=== PATIENT | female | born 1965 | race African-American/Black ===

== ENCOUNTER 2017-01-11 15:47 | Emergency (ER) | payer MEDICARE, MEDICAID ==
--- NOTE | 2017-01-11 16:31 | EDM.PDOC ---
ED HISTORY OF PRESENT ILLNESS - General Chief Complaint: Chest Pain Stated Complaint: [facility] Time Seen by Provider: 01/11/17 16:31 Source of Information: Reports: Patient - History of Present Illness INITIAL COMMENTS - FREE TEXT/NARRATIVE: Patient was brought in by ambulance for multiple complaints. She describes a pleuritic right sided chest pain for about 3 weeks. Now having some PAREDES, dizziness and nausea as well. The dizziness is what brought her in today. She has a history of anxiety, takes Pristiq and BID clonazepam for this. Also reports HTN, insomnia. She smokes marijuana regularly, last time was 1 week ago. Denies other drug or alcohol use. - Related Data Allergies/ADRs: Allergies Allergy/AdvReac Type Severity Reaction Status Date / Time cyclobenzaprine HCl Allergy Airway Verified 01/11/17 15:54 [From Flexeril] Tightness morphine Allergy Airway Verified 01/11/17 15:54 Tightness Home Meds: Home Meds traZODone 100 mg PO BEDTIME 09/06/14 [History] Desvenlafaxine [Pristiq] 50 mg PO DAILY 10/25/15 [History] Prazosin [Minpress] 1 mg PO QPM 10/25/15 [History] Topiramate [Topamax] 100 mg PO BID 10/25/15 [History] ClonazePAM [KlonoPIN] 1 mg PO BID 11/16/15 [History] hydrOXYzine Pamoate [Hydroxyzine Pamoate] 50 mg PO DAILY PRN 11/16/15 [History] Albuterol [Proventil HFA] 2 puff INH QID PRN #1 inhaler 09/13/16 [Rx] metFORMIN HCl [Metformin HCl] 500 mg PO BID 01/11/17 [History] Past Medical History Cardiovascular History: Reports: Hypertension, SOB on exertion Respiratory History: Reports: SOB, Other (see below) Other Respiratory History: right lung nodule 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: Psychiatric History: Reports: Addiction, Anxiety, Depression Endocrine/Metabolic History: Reports: Diabetes, type II - Infectious Disease History Infectious Disease History: Reports: Chicken pox - Past Surgical History GI Surgical History: Reports: Appendectomy Female Surgical History: Reports: Breast reconstruction, Breast reduction, section, Hysterectomy Neurological Surgical History: Reports: Lumbar spine Social & Family History - Tobacco Use Smoking Status *Q: Current Every Day Smoker Years of Tobacco use: 30 Packs/Tins Daily: 0.2 Used Tobacco, but Quit: No Second Hand Smoke Exposure: No - Caffeine Use Caffeine Use: Reports: None - Alcohol Use Days Per Week of Alcohol Use: 0 Number of Drinks Per Day: 2 Total Drinks Per Week: 0 - Recreational Drug Use Recreational Drug Use: Yes Drug Use in Last 12 Months: Yes Recreational Drug Type: Reports: Marijuana/Hashish Recreational Drug Use Frequency: Socially Recreational Drug Last Use: 01/19/2015 ED ROS GENERAL - Review of Systems Review Of Systems: See Below Constitutional: Reports: weakness, fatigue. Denies: decreased appetite HEENT: Reports: No symptoms Respiratory: Reports: Shortness of Breath, Pleuritic Chest Pain, Other (PAREDES). Denies: Wheezing, Cough Cardiovascular: Reports: Chest pain, Blood pressure problem, Dyspnea on exertion , Lightheadedness GI/Abdominal: Reports: Nausea. Denies: Abdominal pain, Constipation, Diarrhea, Decreased appetite Musculoskeletal: Reports: no symptoms Skin: Reports: no symptoms Neurological: Reports: Dizziness, Headache. Denies: Numbness Psychiatric: Reports: Anxiety, Depression. Denies: Suicidal ideation ED EXAM, GENERAL - Physical Exam Exam: See Below Exam Limited By: No limitations General Appearance: alert, WD/WN, anxious Eye Exam: bilateral eye: PERRL Ears: normal external exam, normal canal, normal TMs Throat/Mouth: Normal inspection, Normal oropharynx Head: atraumatic, normocephalic Neck: normal inspection Respiratory/Chest: no respiratory distress, normal breath sounds. No: rhonchi, wheezing Cardiovascular: normal peripheral pulses, regular rate, rhythm, no murmur GI/Abdominal: normal bowel sounds, soft, non tender Back Exam: normal inspection Extremities: normal inspection, normal range of motion Neurological: alert, oriented, normal reflexes, no motor/sensory deficits Psychiatric: anxious Skin Exam: Warm, Dry, Intact Course - Vital Signs Last Recorded V/S: Last Vital Signs Temp 98.5 F 01/11/17 15:57 Pulse 110 H 01/11/17 15:57 Resp 11 L 01/11/17 15:57 BP 120/86 01/11/17 15:57 Pulse Ox 97 01/11/17 15:57 Orthostatic Blood Pressure [ 122/92 Standing] Orthostatic Blood Pressure [ 132/85 Sitting] Orthostatic Blood Pressure [ 120/82 Supine] - Orders/Labs/Meds Orders: Active Orders 24 hr Category Date Time Status EKG Documentation Completion [RC] STAT Care 01/11/17 16:12 Active Orthostatic Vital Signs [RC] ASDIRECTED Care 01/11/17 16:45 Active Chest 1V Frontal [CR] Stat Exams 01/11/17 16:12 Taken Sodium Chloride 0.9% [Saline Flush] Med 01/11/17 16:46 Active 10 ml FLUSH ASDIRECTED PRN Saline Lock Insert [OM.PC] Routine Oth 01/11/17 16:46 Ordered Medication Orders Sodium Chloride (Saline Flush) 10 ml FLUSH ASDIRECTED PRN PRN Reason: Keep Vein Open Labs: Laboratory Tests 01/11/17 01/11/17 01/11/17 Range/Units 17:36 17:36 18:03 WBC 9.01 (3.98-10.04) K/mm3 RBC 4.74 (3.98-5.22) M/mm3 Hgb 12.1 (11.2-15.7) gm/L Hct 36.6 (34.1-44.9) % MCV 77.2 L (79.4-94.8) fl MCH 25.5 L (25.6-32.2) pg MCHC 33.1 (32.2-35.5) g/dl RDW Std Deviation 38.0 (36.4-46.3) fL Plt Count 341 (182-369) K/mm3 MPV 8.6 L (9.4-12.3) fl Neutrophils % (Manual) 48 (40-60) % Band Neutrophils % 1 (0-10) % Lymphocytes % (Manual) 47 H (20-40) % Atypical Lymphs % 0 % Monocytes % (Manual) 4 (2-10) % Eosinophils % (Manual) 0 L (0.7-5.8) % Basophils % (Manual) 0 L (0.1-1.2) Platelet Estimate Adequate Poikilocytosis 1+ slight Anisocytosis 1+ slight Microcytosis 1+ slight Ovalocytes 1+ slight Sodium 139 (136-145) mEq/L Potassium 3.8 (3.5-5.1) mEq/L Chloride 103 (98-107) mEq/L Carbon Dioxide 24 (21-32) mEq/L Anion Gap 15.8 H (5-15) BUN 8 (7-18) mg/dL Creatinine 1.0 (0.55-1.02) mg/dL Est Cr Clr Drug Dosing 52.05 mL/min Estimated GFR (MDRD) > 60 (>60) mL/min BUN/Creatinine Ratio 8.0 L (14-18) Glucose 100 (74-106) mg/dL Calcium 9.0 (8.5-10.1) mg/dL Total Bilirubin 0.3 (0.2-1.0) mg/dL AST 16 (15-37) U/L ALT 30 (14-59) U/L Alkaline Phosphatase 88 (46-116) U/L Troponin I < 0.017 (0.00-0.056) ng/mL C-Reactive Protein 1.5 H* (<1.0) mg/dL Total Protein 7.2 (6.4-8.2) g/dl Albumin 3.6 (3.4-5.0) g/dl Globulin 3.6 gm/dL Albumin/Globulin Ratio 1.0 (1-2) Urine Opiates Screen Negative (NEGATIVE) Ur Buprenorphine Scrn Negative (NEGATIVE) Ur Oxycodone Screen Negative (NEGATIVE) Urine Methadone Screen Negative (NEGATIVE) Ur Propoxyphene Screen Negative (NEGATIVE) Ur Barbiturates Screen Negative (NEGATIVE) Ur Tricyclics Screen Negative (NEGATIVE) Ur Phencyclidine Scrn Negative (NEGATIVE) Ur Amphetamine Screen Negative (NEGATIVE) U Methamphetamines Scrn Negative (NEGATIVE) U Benzodiazepines Scrn Negative (NEGATIVE) U Cocaine Metab Screen Negative (NEGATIVE) U Marijuana (THC) Screen Presumptive positive H (NEGATIVE) Ethyl Alcohol 0.00 (0.00) gm% Meds: Medications Generic Name Dose Route Start Last Admin Trade Name Freq PRN Reason Stop Dose Admin Sodium Chloride 10 ml 01/11/17 16:46 Saline Flush FLUSH ASDIRECTED PRN Keep Vein Open - Re-Assessments/Exams Free Text/Narrative Re-Assessment/Exam: Exam normal, including orthostatic BP. CBC/CMP unremarkable. CXR normal. EKG sinus tachycardia with a rate of 104. I suspect weakness is related to her diet. She has been eating mostly vegetables and fruit and in small amounts. No protein or carbohydrates. Discussed at length the importance of this and patient verbalized understanding. Certainly anxiety and her medication could be contributing as well. Patient will improve diet and follow-up with PCP next week. 01/11/17 19:15 Departure - Departure Time of Disposition: 19:09 Disposition: Home, Self-Care 01 Condition: good Clinical Impression: Weakness Instructions: Weakness, [id number] Referrals: Rosa Maria Retana DO [Primary Care Provider] - Forms: ED Department Discharge Additional Instructions: You need to work on eating a healthy diet. You need some protein and carbohydrates every day as we discussed. Keep a diary of your symptoms and diet. Follow-up with your primary provider next week or certainly return to ER if needed. - My Orders Last 24 Hours: My Active Orders 01/11/17 16:12 EKG Documentation Completion [RC] STAT 01/11/17 16:45 Orthostatic Vital Signs [RC] ASDIRECTED 01/11/17 16:46 Sodium Chloride 0.9% [Saline Flush] 10 ml FLUSH ASDIRECTED PRN Saline Lock Insert [OM.PC] Routine - Assessment/Plan Last 24 Hours: My Active Orders 01/11/17 16:12 EKG Documentation Completion [RC] STAT 01/11/17 16:45 Orthostatic Vital Signs [RC] ASDIRECTED 01/11/17 16:46 Sodium Chloride 0.9% [Saline Flush] 10 ml FLUSH ASDIRECTED PRN Saline Lock Insert [OM.PC] Routine
[2017-01-11] MEDS ORDERED: Sodium Chloride 0.9% 10 ML Syringe FLUSH PRN (16:46)
[2017-01-11 19:41] VITALS: BP 122/84
--- NOTE | 2017-01-13 09:27 | CR ---
Chest: Portable view of the chest was obtained. Comparison: Previous chest x-ray of 09/13/16. Heart size and mediastinum are normal. Slight parenchymal density noted within the right upper chest felt compatible with area of scarring. Lungs otherwise are clear. Bony structures are grossly intact. Impression: 1. Nothing acute is appreciated on portable chest x-ray. No significant change from previous exam. Diagnostic code #2
== END 2017-01-11 19:35 | disposition home or self-care (01) ==
LOC: JD.ED 15:47 → SUPCPDRO 15:47 → JD.ED 19:35
DX: R53.1 Weakness (principal); E11.9 Type 2 diabetes mellitus without complications; I10 Essential (primary) hypertension; Z88.8 Allergy status to other drugs, medicaments and biological substances; Z79.899 Other long term (current) drug therapy; Z79.84 Long term (current) use of oral hypoglycemic drugs; Z90.49 Acquired absence of other specified parts of digestive tract; Z98.890 Other specified postprocedural states
CPT/HCPCS: 36415; 71010; 80053; 80306; 84484; 85025; 86140; 93005; 99285; G0480; 99284

== ENCOUNTER 2017-06-07 11:26 | Emergency (ER) | payer MEDICARE, MEDICAID ==
[2017-06-07 11:55] VITALS: BP 124/82
[2017-06-07] MEDS ORDERED: traMADol 50 MG Tab PO ONE (13:04)
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
== END 2017-06-07 13:54 | disposition home or self-care (01) ==
LOC: JD.ED 11:26
DX: M19.011 Primary osteoarthritis, right shoulder (principal); I10 Essential (primary) hypertension; E78.00 Pure hypercholesterolemia, unspecified; F32.9 Major depressive disorder, single episode, unspecified; E11.9 Type 2 diabetes mellitus without complications; Z90.49 Acquired absence of other specified parts of digestive tract; Z98.890 Other specified postprocedural states; Z41.1 Encounter for cosmetic surgery; Z87.891 Personal history of nicotine dependence; Z79.84 Long term (current) use of oral hypoglycemic drugs; Z79.899 Other long term (current) drug therapy; Z88.5 Allergy status to narcotic agent; Z88.8 Allergy status to other drugs, medicaments and biological substances
CPT/HCPCS: 99283

== ENCOUNTER 2017-07-07 12:08 | Emergency (ER) | payer MEDICARE, MEDICAID ==
[2017-07-07] MEDS ORDERED: Sodium Chloride 0.9% 10 ML Syringe FLUSH PRN (12:39)
[2017-07-07] MEDS ORDERED: Ondansetron 4 MG/2 ML SDV IVPUSH ONE ×2 (12:40→13:49)
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
[2017-07-07] MEDS ORDERED: Famotidine 20 MG/2 ML SDV IVPUSH ONE (14:42)
[2017-07-07] MEDS ORDERED: Alum Hydrox/Mag Hydrox/Simeth 30 ML, Lidocaine 2% 15 ML PO ONE ×2 (14:42)
[2017-07-07] MEDS ORDERED: Metoclopramide 10 MG/2 ML SDV IVPUSH ONE (14:42)
[2017-07-07 16:44] VITALS: BP 107/71
--- NOTE | 2017-07-07 19:58 | CR ---
Chest: Portable view of the chest was obtained. Comparison: Previous chest x-ray of 01/11/17. Heart size and mediastinum are within normal limits. Lungs are clear. Bony structures are grossly intact. Impression: 1. Nothing acute is identified on portable chest x-ray. Diagnostic code #1
== END 2017-07-07 16:40 | disposition home or self-care (01) ==
LOC: JD.ED 12:08
DX: R07.9 Chest pain, unspecified (principal); I10 Essential (primary) hypertension; E78.00 Pure hypercholesterolemia, unspecified; E11.9 Type 2 diabetes mellitus without complications; Z88.5 Allergy status to narcotic agent; Z79.899 Other long term (current) drug therapy; Z79.84 Long term (current) use of oral hypoglycemic drugs; Z87.442 Personal history of urinary calculi; Z90.49 Acquired absence of other specified parts of digestive tract; Z87.891 Personal history of nicotine dependence
CPT/HCPCS: 36415; 71010; 80053; 83690; 84443; 84484; 85025; 93005; 96374; 96375; 96376; 99285; A9270; J2405; J2765; J7050

== ENCOUNTER 2017-11-11 11:36 | Emergency (ER) | payer MEDICARE, MEDICAID ==
[2017-11-11 11:46] VITALS: BP 126/68
[2017-11-11] MEDS ORDERED: HYDROmorphone 1 MG/ML Syringe IM ONE (12:16)
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
== END 2017-11-11 12:36 | disposition home or self-care (01) ==
LOC: JD.ED 11:36
DX: M19.011 Primary osteoarthritis, right shoulder (principal); E78.00 Pure hypercholesterolemia, unspecified; I10 Essential (primary) hypertension; E11.9 Type 2 diabetes mellitus without complications; Z88.5 Allergy status to narcotic agent; Z88.8 Allergy status to other drugs, medicaments and biological substances; Z79.899 Other long term (current) drug therapy
CPT/HCPCS: 96372; 99283; J1170

== ENCOUNTER 2018-05-03 12:15 | Emergency (ER) | payer MEDICARE, MEDICAID ==
[2018-05-03] MEDS ORDERED: HYDROmorphone 0.5 MG/0.5 ML SYRINGE IM ONE (13:04)
[2018-05-03] MEDS ORDERED: Potassium Chloride 20 MEQ Tab.ER PO ONE (14:03)
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
[2018-05-03 15:17] VITALS: BP 115/68
--- NOTE | 2018-05-04 11:01 | CR ---
Lumbar spine: AP, lateral and cone down lateral views centered to the lumbosacral junction were obtained. Comparison: No prior lumbar spine imaging. Intervertebral disc fixation object is seen at L5-S1. Screws are identified within S1. Other disc spaces are maintained. Minimal scattered endplate osteophytes are seen. Pedicles as well as transverse and spinous processes are intact. Sclerosis is noted within both sacroiliac joints. Impression: 1. Incidental findings as noted above. Diagnostic code #2
--- NOTE | 2018-05-04 11:01 | CR ---
Abdomen: Supine view of the abdomen was obtained. Comparison: Prior abdominal x-ray of 12/01/14 is available. Prior abdominal surgery is seen. Prior surgery is noted within the lumbosacral junction. Slight degenerative sclerosis is seen within the sacroiliac joints. Bowel gas pattern is normal. Small calcifications are seen within the pelvis which are believed to be incidental. Impression: 1. Incidental findings as noted above. Nothing acute is seen. Diagnostic code #2
== END 2018-05-03 15:10 | disposition home or self-care (01) ==
LOC: JD.ED 12:15
DX: M19.011 Primary osteoarthritis, right shoulder (principal); K59.00 Constipation, unspecified; M54.9 Dorsalgia, unspecified; R25.1 Tremor, unspecified; E78.00 Pure hypercholesterolemia, unspecified; I10 Essential (primary) hypertension; E11.9 Type 2 diabetes mellitus without complications; F32.9 Major depressive disorder, single episode, unspecified; F41.9 Anxiety disorder, unspecified; Z88.5 Allergy status to narcotic agent; Z88.8 Allergy status to other drugs, medicaments and biological substances
CPT/HCPCS: 36415; 72100; 74018; 80053; 81001; 84443; 85025; 96372; 99284; A9270; J1170